=== PATIENT | male | born 1950 ===

== ENCOUNTER 2020-06-30 17:37 | Inpatient (IN) | payer OTHER ==
[~2020-06-30] VITALS: Ht 177.8 cm; Wt 94.8 kg
--- NOTE | 2020-06-30 17:45 | NUR ---
BIB EMS FOR C/O SOB STARTED A FEW DAYS AGO. WENT TO [facility] AND WAS D/C'D. WENT TO DIFFERENT HOSP[facility] YESTERDAY FOR SAME SX WAS D/C'D FROM THERE. PT STATES SOB AFTER SMOKING. WAS GIVEN 1 DUENEB TX AND 1 ALBUTEROL TC W/O RELIEF. PT ALSO DRANK 5 BEERS TODAY. PER PT THAT IS STANDARD DAILY. PT ON 2L NC BASELINE SATIN 979%. PT NOTED TO HAVE PURSE LIPPED BREATHING. PT RESTING ON GURNEY. SITTING UP. MONITORS APPLIED. ERP DR. PIERCE AT BEDSIDE FOR EVAL.
[2020-06-30] MEDS ORDERED: methylPREDNISolone SOD SUCC 125 MG/2 ML ONE (17:57)
[2020-06-30] MEDS ORDERED: MORPHINE SULFATE 4 MG/ML, 1ML ONE (17:57)
[2020-06-30] MEDS ORDERED: ALBUTEROL SULFATE 2.5MG/0.5ML ONE ×2 (17:58→18:00)
[2020-06-30] MEDS ORDERED: MORPHINE SULFATE 4 MG/ML, 1ML IVPush PRN (18:00)
[2020-06-30] MEDS ORDERED: methylPREDNISolone SOD SUCC 125 MG/2 ML IVPush ONE (18:00)
[2020-06-30] MEDS ORDERED: SODIUM CHLORIDE FLUSH 10ML SYR IVF ONE (18:00)
[2020-06-30] MEDS ORDERED: SODIUM CHLORIDE 0.9% 1,000ML IVBOLUS ONE (18:00)
[2020-06-30] MEDS ORDERED: ALBUTEROL 0.5%, 20ML NPPBCONT ONE (18:00)
[2020-06-30 18:16] LABS: MEAN CORPUSCULAR HEMOGLOBIN 33.8 pg (27.5-34.5); MEAN CORPUSCULAR HGB CONC 34.4 g/dL (33.2-36.2); MEAN PLATELET VOLUME 7.2 fL (7.4-10.4); PLATELET COUNT 459 x10^3/uL (130-400); RED BLOOD COUNT 3.74 x10^6/uL (4.38-5.82)
[2020-06-30 18:24] LABS: ALANINE AMINOTRANSFERASE 46 U/L (12-78); ALBUMIN 3.5 g/dL (3.4-5.0); ANION GAP 7 mmol/L (5-15); CALCIUM 8.4 mg/dL (8.5-10.1); CHLORIDE 99 mmol/L (98-107); CREATININE 0.97 mg/dL (0.7-1.3)
--- NOTE | 2020-06-30 18:25 | NUR ---
PT NOTED TO HAVE BREATHING MUCH IMPROVED AFTER INITIATING BIPAP. PT BP NOTED TO BE DECREASED TO 84/50. ERP DR. PIERCE MADE AWARE. NEW ORDERS PLACED.
[2020-06-30 18:26] LABS: ALKALINE PHOSPHATASE 117 U/L (45-117); BILIRUBIN,TOTAL 0.2 mg/dL (0.2-1.0); TOTAL PROTEIN 6.9 g/dL (6.4-8.2)
[2020-06-30] MEDS ORDERED: SODIUM CHLORIDE 0.9%, 500ML IVBOLUS ONE (18:30)
[2020-06-30 18:59] LABS: MD YES
[2020-06-30 19:02] LABS: <PLATELET ESTIMATE> INCREASED; <PLT MORPHOLOGY> NORMAL PLT MORPH; LYMPH#(MANUAL) 1.85 x10^3/uL (1-3.4); LYMPHS% (MANUAL) 13 % (22-44); MONOS#(MANUAL) 0.57 x10^3/uL (0.3-2.7); MONOS% (MANUAL) 4 % (2-9); SEG#(MANUAL) 11.79 x10^3/uL (1.8-6.8); SEGS% (MANUAL) 83 % (42-75)
[2020-06-30 19:04] LABS: <RBC MORPHOLOGY> NORMAL
--- NOTE | 2020-06-30 19:21 | NUR ---
PT CHART REVIEWED AND PLACED FOR RECHECK.
--- NOTE | 2020-06-30 19:28 | NUR ---
ERP DR. PIERCE AT BEDSIDE FOR RE-EVAL. PT TAKEN OFF BIPAP TO ASSESS STATUS.
[2020-06-30] MEDS ORDERED: ALBUTEROL/IPRATROPIUM 2.5MG/0.5MG, 3 ML ONE (19:53)
--- NOTE | 2020-06-30 19:57 | NUR ---
PT has been off bipap for 25 min at this time. MD advised and he ordered a duoneb for pt, prior to re eval for which floor to be admitted too. Pt is lying comfortably, with eyes closed and resting. o2 sats 96% on 2 lpm nc. easy respirations, good aeration and oxygenation. duoneb started and pt holding nebulizer in hand to mouth. tolerating well. RT updated to progress and orders. MD to re eval pt in 20 min.
[2020-06-30] MEDS ORDERED: ALBUTEROL/IPRATROPIUM 2.5MG/0.5MG, 3 ML NEB ONE (20:00)
[2020-06-30] MEDS ORDERED: CEFTRIAXONE PMX 1GM/50ML 50 ML ONE (20:14)
--- NOTE | 2020-06-30 20:26 | NUR ---
PT REMAINS ON 2L NC SATING 99%. PT RR WNL. PT RESTING ON GURNEY. NADN. VSS. STATES HE FEELS MUCH IMPROVED SINCE MEDICATIONS AND BIPAP SESSION.
[2020-06-30] MEDS ORDERED: CEFTRIAXONE PMX 1GM/50ML 50 ML IV ONE (20:30)
[2020-06-30] MEDS ORDERED: AZITHROMYCIN 500 MG in SODIUM CHLORIDE 0.9% 250 ML IV ONE (20:30)
--- NOTE | 2020-06-30 20:54 | NUR ---
REPORT GIVEN TO VAUGHN NARVAEZ RN.
[2020-06-30] MEDS ORDERED: ALBUTEROL SULFATE 2.5MG/0.5ML NPPB ONE (21:00)
--- NOTE | 2020-06-30 21:00 | NUR ---
pt calm and cooperative, resting easy in bed, on o2 nc 2lpm, no distress at this time, post bipap and duo neb, remains on cr monitor, waiting on room upstairs to transfer pt.
--- NOTE | 2020-06-30 22:03 | NUR ---
pt calm and cooperative, resting easy, and good aeration and oxygenation. o2 sat 100% on 2 lpm nc. report being called to floor RN, to transfer pt.
[2020-06-30] MEDS ORDERED: LIDODERM 5% PATCH TD PRN (22:30)
[2020-06-30] MEDS ORDERED: MELATONIN 5 MG TABLET PO PRN (22:30)
[2020-06-30] MEDS ORDERED: DOCUSATE 100 MG CAPSULE PO PRN (22:30)
[2020-06-30] MEDS ORDERED: HEPARIN 5,000 UNITS/ML, 1ML SQ SCH (22:30)
[2020-06-30] MEDS ORDERED: ACETAMINOPHEN 325 MG TABLET PO PRN (22:30)
[2020-06-30] MEDS: ENOXAPARIN 40 MG/0.4 ML SQ SCH (22:30)
--- NOTE | 2020-06-30 22:35 | NUR ---
hospitalist to bedside to interview/eval pt. warm blankets provided to pt and he v/u comfort. waiting for orders and tech to transport pt to floor.
--- NOTE | 2020-06-30 22:52 | NUR ---
pt transported up to floor with RN and Tech. on cr monitor. pt awake and alert, no distress at this time. good aeration and oxygenation. on o2 2 lpm nc.
[2020-06-30 23:07] VITALS: BP 150/69
[2020-06-30] MEDS ORDERED: LORazepam 1MG TABLET PO PRN ×4 (23:30)
[2020-06-30] MEDS ORDERED: HEPARIN/LOVENOX MC SCH (23:30)
[2020-06-30] MEDS ORDERED: FOLIC ACID 1 MG TABLET PO ONE (23:30)
[2020-06-30] MEDS ORDERED: LORazepam 0.5MG TABLET PO PRN (23:30)
[2020-06-30] MEDS ORDERED: THIAMINE 200 MG in DEXTROSE 5% 50 ML IVPB ONE (23:30)
[2020-07-01 01:46] VITALS: BP 158/75
[2020-07-01] MEDS ORDERED: ALBUTEROL-IPRATROPIUM MDI INH INH SCH (03:00)
[2020-07-01] MEDS ORDERED: methylPREDNISolone SOD SUCC 40 MG/ML IVPush SCH (06:00)
[2020-07-01 06:11] LABS: BASOPHILS % (AUTO) 1 % (0-1); EOSINOPHILS % (AUTO) 0 % (1-7); LYMPHOCYTES % (AUTO) 4 % (22-44); MEAN CORPUSCULAR HEMOGLOBIN 34.1 pg (27.5-34.5); MEAN CORPUSCULAR HGB CONC 34.6 g/dL (33.2-36.2); MEAN PLATELET VOLUME 7.3 fL (7.4-10.4); MONOCYTES % (AUTO) 4 % (2-9); NEUTROPHILS % (AUTO) 93 % (42-75); PLATELET COUNT 440 x10^3/uL (130-400); RED BLOOD COUNT 3.49 x10^6/uL (4.38-5.82); RED CELL DISTRIBUTION WIDTH 14.4 % (9.4-14.8)
[2020-07-01 06:16] LABS: ANION GAP 4 mmol/L (5-15); CHLORIDE 101 mmol/L (98-107); CREATININE 0.69 mg/dL (0.7-1.3)
[2020-07-01 07:29] VITALS: BP 156/88
[2020-07-01 08:00] LABS: MD SCAN
[2020-07-01] MEDS ORDERED: ALBUTEROL/IPRATROPIUM 2.5MG/0.5MG, 3 ML ONE ×2 (08:54→09:28)
[2020-07-01] MEDS ORDERED: THIAMINE 100MG TABLET PO SCH (09:00)
[2020-07-01] MEDS ORDERED: FOLIC ACID 1 MG TABLET PO SCH (09:00)
[2020-07-01] MEDS: TIOTROPIUM BROMIDE 18 MCG/INH INH SCH (09:00)
[2020-07-01 09:02] VITALS: BP 110/66
[2020-07-01] MEDS ORDERED: SODIUM CHLORIDE 0.9% 1,000 ML IV SCH (09:30)
[2020-07-01] MEDS ORDERED: LORazepam 2 MG/ML, 1ML IVPush PRN (09:30)
[2020-07-01] MEDS: CHLORDIAZEPOXIDE 25 MG CAPSULE PO SCH ×3 (09:30→22:09)
[2020-07-01] MEDS ORDERED: FUROSEMIDE 40 MG/4 ML IV ONE (09:30)
[2020-07-01] MEDS ORDERED: LORazepam 2 MG/ML, 1ML IVPush ONE (09:30)
[2020-07-01 09:34] LABS: O2 FLOW 15 L/min
[2020-07-01] MEDS: MAGNESIUM SULFATE 1 GM, THIAMINE 200 MG, FOLIC ACID 1 MG, MVI ADULT 10 ML in SODIUM CHL... IV SCH (09:44)
[2020-07-01] MEDS: methylPREDNISolone SOD SUCC 40 MG/ML IVPush SCH ×3 (09:44→22:09)
[2020-07-01] MEDS: FLUTICASONE/VILANTEROL 200-25MCG/INH INH SCH (09:44)
[2020-07-01 10:33] LABS: FIO2 80 %
[2020-07-01] MEDS: ALBUTEROL/IPRATROPIUM 2.5MG/0.5MG, 3 ML NPPB SCH ×4 (14:00→23:00)
[2020-07-01] MEDS: ENOXAPARIN 40 MG/0.4 ML SQ SCH (22:10)
[2020-07-01] MEDS: CEFTRIAXONE PMX 1GM/50ML 50 ML IV SCH (22:34)
[2020-07-01] MEDS: AZITHROMYCIN 500 MG in SODIUM CHLORIDE 0.9% 250 ML IV SCH (23:17)
[2020-07-02] MEDS: ALBUTEROL/IPRATROPIUM 2.5MG/0.5MG, 3 ML NPPB SCH (03:00)
[2020-07-02 03:04] LABS: BASOPHILS % (AUTO) 1 % (0-1); EOSINOPHILS % (AUTO) 0 % (1-7); LYMPHOCYTES % (AUTO) 2 % (22-44); MEAN CORPUSCULAR HEMOGLOBIN 34.2 pg (27.5-34.5); MEAN CORPUSCULAR HGB CONC 34.6 g/dL (33.2-36.2); MEAN PLATELET VOLUME 7.4 fL (7.4-10.4); MONOCYTES % (AUTO) 5 % (2-9); NEUTROPHILS % (AUTO) 93 % (42-75); PLATELET COUNT 402 x10^3/uL (130-400); RED BLOOD COUNT 3.27 x10^6/uL (4.38-5.82); RED CELL DISTRIBUTION WIDTH 14.3 % (9.4-14.8)
[2020-07-02 03:13] LABS: ALANINE AMINOTRANSFERASE 30 U/L (12-78); ANION GAP 3 mmol/L (5-15); CALCIUM 8.6 mg/dL (8.5-10.1); CHLORIDE 100 mmol/L (98-107); CREATININE 0.89 mg/dL (0.7-1.3)
[2020-07-02 03:16] LABS: ALKALINE PHOSPHATASE 97 U/L (45-117); BILIRUBIN,TOTAL 0.2 mg/dL (0.2-1.0); TOTAL PROTEIN 5.9 g/dL (6.4-8.2)
[2020-07-02 03:22] LABS: MD SCAN
[2020-07-02] MEDS: methylPREDNISolone SOD SUCC 40 MG/ML IVPush SCH ×4 (03:57→21:51)
[2020-07-02] MEDS: MAGNESIUM SULFATE 1 GM, THIAMINE 200 MG, FOLIC ACID 1 MG, MVI ADULT 10 ML in SODIUM CHL... IV SCH (09:12)
[2020-07-02] MEDS: CHLORDIAZEPOXIDE 25 MG CAPSULE PO SCH ×3 (09:12→21:51)
[2020-07-02] MEDS: ALBUTEROL HFA 90 MCG/SPRAY INH SCH ×3 (10:25→21:51)
[2020-07-02] MEDS: TIOTROPIUM BROMIDE 18 MCG/INH INH SCH (10:25)
[2020-07-02] MEDS: FLUTICASONE/VILANTEROL 200-25MCG/INH INH SCH (10:25)
[2020-07-02] MEDS: NICOTINE 21 MG/24 HR PATCH.TD24 TD SCH (12:05)
[2020-07-02] MEDS ORDERED: ALBUTEROL SULFATE 2.5 MG/3 ML ONE (13:41)
[2020-07-02] MEDS: ALBUTEROL SULFATE 2.5 MG/3 ML NPPB PRN ×2 (13:50→20:39)
[2020-07-02] MEDS: CEFTRIAXONE PMX 1GM/50ML 50 ML IV SCH (21:51)
[2020-07-02] MEDS: ENOXAPARIN 40 MG/0.4 ML SQ SCH (22:00)
[2020-07-02] MEDS: AZITHROMYCIN 500 MG in SODIUM CHLORIDE 0.9% 250 ML IV SCH (22:36)
[2020-07-03] MEDS: ALBUTEROL HFA 90 MCG/SPRAY INH SCH ×2 (04:02→08:45)
[2020-07-03] MEDS: methylPREDNISolone SOD SUCC 40 MG/ML IVPush SCH ×4 (04:02→21:55)
[2020-07-03 04:31] LABS: BASOPHILS % (AUTO) 0 % (0-1); EOSINOPHILS % (AUTO) 0 % (1-7); LYMPHOCYTES % (AUTO) 2 % (22-44); MEAN CORPUSCULAR HEMOGLOBIN 33.7 pg (27.5-34.5); MEAN CORPUSCULAR HGB CONC 33.9 g/dL (33.2-36.2); MEAN PLATELET VOLUME 7.3 fL (7.4-10.4); MONOCYTES % (AUTO) 6 % (2-9); NEUTROPHILS % (AUTO) 92 % (42-75); PLATELET COUNT 448 x10^3/uL (130-400); RED BLOOD COUNT 3.49 x10^6/uL (4.38-5.82); RED CELL DISTRIBUTION WIDTH 14.2 % (9.4-14.8)
[2020-07-03 04:34] LABS: MD SCAN
[2020-07-03 04:36] LABS: ANION GAP 6 mmol/L (5-15); CALCIUM 8.7 mg/dL (8.5-10.1); CHLORIDE 102 mmol/L (98-107); CREATININE 1.05 mg/dL (0.7-1.3)
[2020-07-03] MEDS: CHLORDIAZEPOXIDE 25 MG CAPSULE PO SCH ×3 (08:28→21:07)
[2020-07-03] MEDS: NICOTINE 21 MG/24 HR PATCH.TD24 TD SCH (08:28)
[2020-07-03] MEDS: TIOTROPIUM BROMIDE 18 MCG/INH INH SCH (08:28)
[2020-07-03] MEDS: FLUTICASONE/VILANTEROL 200-25MCG/INH INH SCH (08:29)
[2020-07-03] MEDS: THIAMINE 200 MG in SODIUM CHLORIDE 0.9% 50 ML IV SCH (08:45)
[2020-07-03] MEDS ORDERED: ALBUTEROL/IPRATROPIUM 2.5MG/0.5MG, 3 ML NPPB SCH (19:00)
[2020-07-03 20:57] VITALS: BP 176/94
[2020-07-03] MEDS: LABETALOL 5MG/ML, 20ML IVPush PRN (21:07)
[2020-07-03] MEDS: CEFTRIAXONE PMX 1GM/50ML 50 ML IV SCH (21:07)
[2020-07-03] MEDS: AZITHROMYCIN 500 MG in SODIUM CHLORIDE 0.9% 250 ML IV SCH (21:54)
[2020-07-03] MEDS: ENOXAPARIN 40 MG/0.4 ML SQ SCH (21:55)
[2020-07-03 21:59] VITALS: BP 169/65
[2020-07-04] VITALS (8 sets, daily range): BP systolic 158–188; BP diastolic 62–109
[2020-07-04] MEDS: LABETALOL 5MG/ML, 20ML IVPush PRN (00:11)
[2020-07-04] MEDS: methylPREDNISolone SOD SUCC 40 MG/ML IVPush SCH ×3 (03:10→16:12)
[2020-07-04] MEDS ORDERED: MELATONIN 5 MG TABLET PO PRN (08:30)
[2020-07-04] MEDS ORDERED: LORazepam 2 MG/ML, 1ML IVPush ONE (08:30)
[2020-07-04] MEDS: FLUTICASONE/VILANTEROL 200-25MCG/INH INH SCH (08:52)
[2020-07-04] MEDS: TIOTROPIUM BROMIDE 18 MCG/INH INH SCH (08:52)
[2020-07-04] MEDS: CHLORDIAZEPOXIDE 25 MG CAPSULE PO SCH ×3 (08:54→19:55)
[2020-07-04] MEDS: NICOTINE 21 MG/24 HR PATCH.TD24 TD SCH (08:56)
[2020-07-04] MEDS: THIAMINE 200 MG in SODIUM CHLORIDE 0.9% 50 ML IV SCH (09:38)
[2020-07-04] MEDS ORDERED: methylPREDNISolone SOD SUCC 125 MG/2 ML ONE (15:54)
[2020-07-04] MEDS ORDERED: methylPREDNISolone SOD SUCC 125 MG/2 ML IVPush SCH (17:00)
[2020-07-04] MEDS: CEFTRIAXONE PMX 1GM/50ML 50 ML IV SCH (19:59)
[2020-07-04] MEDS: AZITHROMYCIN 500 MG in SODIUM CHLORIDE 0.9% 250 ML IV SCH (21:41)
[2020-07-04] MEDS: ENOXAPARIN 40 MG/0.4 ML SQ SCH (21:41)
[2020-07-05 01:20] VITALS: BP 147/88
[2020-07-05 07:38] VITALS: BP 171/102
[2020-07-05 07:40] LABS: BASOPHILS % (AUTO) 0 % (0-1); EOSINOPHILS % (AUTO) 0 % (1-7); LYMPHOCYTES % (AUTO) 4 % (22-44); MEAN CORPUSCULAR HEMOGLOBIN 33.7 pg (27.5-34.5); MEAN CORPUSCULAR HGB CONC 33.7 g/dL (33.2-36.2); MEAN PLATELET VOLUME 7.5 fL (7.4-10.4); MONOCYTES % (AUTO) 4 % (2-9); NEUTROPHILS % (AUTO) 92 % (42-75); PLATELET COUNT 400 x10^3/uL (130-400); RED BLOOD COUNT 3.66 x10^6/uL (4.38-5.82); RED CELL DISTRIBUTION WIDTH 14.2 % (9.4-14.8)
[2020-07-05 07:46] LABS: ANION GAP 5 mmol/L (5-15); CALCIUM 8.4 mg/dL (8.5-10.1); CHLORIDE 104 mmol/L (98-107)
[2020-07-05 07:47] LABS: CREATININE 0.98 mg/dL (0.7-1.3)
[2020-07-05] MEDS: AMLODIPINE 5 MG TABLET PO SCH (07:48)
[2020-07-05] MEDS: CHLORDIAZEPOXIDE 25 MG CAPSULE PO SCH ×3 (07:48→20:24)
[2020-07-05] MEDS: NICOTINE 21 MG/24 HR PATCH.TD24 TD SCH (07:49)
[2020-07-05] MEDS: LABETALOL 5MG/ML, 20ML IVPush PRN (07:50)
[2020-07-05] MEDS: TIOTROPIUM BROMIDE 18 MCG/INH INH SCH (07:52)
[2020-07-05] MEDS: FLUTICASONE/VILANTEROL 200-25MCG/INH INH SCH (07:52)
[2020-07-05 08:03] LABS: MD SCAN
[2020-07-05] MEDS: THIAMINE 200 MG in SODIUM CHLORIDE 0.9% 50 ML IV SCH (08:43)
[2020-07-05 12:17] VITALS: BP 151/89
[2020-07-05] MEDS ORDERED: methylPREDNISolone SOD SUCC 125 MG/2 ML IVPush ONE (18:30)
[2020-07-05 20:00] VITALS: BP 152/81
[2020-07-05] MEDS: CEFTRIAXONE PMX 1GM/50ML 50 ML IV SCH (20:24)
[2020-07-05] MEDS: AZITHROMYCIN 500 MG in SODIUM CHLORIDE 0.9% 250 ML IV SCH (21:50)
[2020-07-05] MEDS: ENOXAPARIN 40 MG/0.4 ML SQ SCH (21:50)
[2020-07-06 02:00] VITALS: BP 136/90
[2020-07-06] MEDS ORDERED: methylPREDNISolone SOD SUCC 125 MG/2 ML IVPush SCH (07:30)
[2020-07-06] MEDS: FLUTICASONE/VILANTEROL 200-25MCG/INH INH SCH (08:31)
[2020-07-06] MEDS: THIAMINE 200 MG in SODIUM CHLORIDE 0.9% 50 ML IV SCH (08:31)
[2020-07-06] MEDS: TIOTROPIUM BROMIDE 18 MCG/INH INH SCH (08:31)
[2020-07-06] MEDS: NICOTINE 21 MG/24 HR PATCH.TD24 TD SCH ×2 (08:32→09:00)
[2020-07-06] MEDS: AMLODIPINE 5 MG TABLET PO SCH (08:32)
[2020-07-06] MEDS: CHLORDIAZEPOXIDE 25 MG CAPSULE PO SCH ×3 (08:32→20:29)
[2020-07-06 08:34] VITALS: BP 130/62
[2020-07-06 09:38] LABS: BASOPHILS % (AUTO) 0 % (0-1); EOSINOPHILS % (AUTO) 0 % (1-7); LYMPHOCYTES % (AUTO) 4 % (22-44); MEAN CORPUSCULAR HEMOGLOBIN 33.6 pg (27.5-34.5); MEAN CORPUSCULAR HGB CONC 33.6 g/dL (33.2-36.2); MEAN PLATELET VOLUME 7.4 fL (7.4-10.4); MONOCYTES % (AUTO) 7 % (2-9); NEUTROPHILS % (AUTO) 89 % (42-75); PLATELET COUNT 395 x10^3/uL (130-400); RED BLOOD COUNT 3.68 x10^6/uL (4.38-5.82); RED CELL DISTRIBUTION WIDTH 14.3 % (9.4-14.8)
[2020-07-06 09:47] LABS: CALCIUM 8.2 mg/dL (8.5-10.1); CREATININE 0.74 mg/dL (0.7-1.3)
[2020-07-06 09:57] LABS: ANION GAP 6 mmol/L (5-15); CHLORIDE 100 mmol/L (98-107)
[2020-07-06 10:00] LABS: MD SCAN
[2020-07-06 13:15] VITALS: BP 164/90
[2020-07-06 20:00] VITALS: BP 156/87
[2020-07-06] MEDS: CEFTRIAXONE PMX 1GM/50ML 50 ML IV SCH (20:29)
[2020-07-06] MEDS: ALBUTEROL HFA 90 MCG/SPRAY INH PRN (20:34)
[2020-07-06] MEDS: ENOXAPARIN 40 MG/0.4 ML SQ SCH (21:34)
[2020-07-06] MEDS: AZITHROMYCIN 500 MG in SODIUM CHLORIDE 0.9% 250 ML IV SCH (21:34)
[2020-07-07 01:49] VITALS: BP 131/77
[2020-07-07 04:55] LABS: BASOPHILS % (AUTO) 0 % (0-1); EOSINOPHILS % (AUTO) 1 % (1-7); LYMPHOCYTES % (AUTO) 5 % (22-44); MEAN CORPUSCULAR HEMOGLOBIN 34.5 pg (27.5-34.5); MEAN CORPUSCULAR HGB CONC 34.3 g/dL (33.2-36.2); MEAN PLATELET VOLUME 7.5 fL (7.4-10.4); MONOCYTES % (AUTO) 11 % (2-9); NEUTROPHILS % (AUTO) 83 % (42-75); PLATELET COUNT 372 x10^3/uL (130-400); RED BLOOD COUNT 3.36 x10^6/uL (4.38-5.82); RED CELL DISTRIBUTION WIDTH 14.4 % (9.4-14.8)
[2020-07-07 05:04] LABS: ANION GAP 3 mmol/L (5-15); CALCIUM 8.3 mg/dL (8.5-10.1); CHLORIDE 101 mmol/L (98-107); CREATININE 0.99 mg/dL (0.7-1.3)
[2020-07-07 05:43] LABS: MD SCAN
[2020-07-07 08:43] VITALS: BP 166/92
[2020-07-07] MEDS: THIAMINE 200 MG in SODIUM CHLORIDE 0.9% 50 ML IV SCH (10:15)
[2020-07-07] MEDS: CHLORDIAZEPOXIDE 25 MG CAPSULE PO SCH ×3 (10:15→20:47)
[2020-07-07] MEDS: AMLODIPINE 5 MG TABLET PO SCH (10:15)
[2020-07-07] MEDS: FUROSEMIDE 40 MG/4 ML IV SCH (10:15)
[2020-07-07] MEDS: NICOTINE 21 MG/24 HR PATCH.TD24 TD SCH (10:16)
[2020-07-07] MEDS: TIOTROPIUM BROMIDE 18 MCG/INH INH SCH (10:16)
[2020-07-07] MEDS: FLUTICASONE/VILANTEROL 200-25MCG/INH INH SCH (10:16)
[2020-07-07 12:02] VITALS: BP 147/81
[2020-07-07 13:40] LABS: MICROSCOPIC NOT IND
[2020-07-07] MEDS ORDERED: THEOPHYLLINE 100 MG CAP.ER.24H PO SCH (14:30)
[2020-07-07] MEDS: THEOPHYLLINE 80 MG/15 ML PO SCH (17:49)
[2020-07-07 18:43] VITALS: BP 142/67
[2020-07-07] MEDS: ALBUTEROL HFA 90 MCG/SPRAY INH PRN (20:45)
[2020-07-07] MEDS: CEFTRIAXONE PMX 2GM/50ML 50 ML IVPB SCH (20:50)
[2020-07-08] MEDS: ENOXAPARIN 40 MG/0.4 ML SQ SCH ×2 (00:19→21:37)
[2020-07-08] MEDS: THEOPHYLLINE 80 MG/15 ML PO SCH (01:45)
[2020-07-08 02:11] VITALS: BP 143/68
[2020-07-08] MEDS: ALBUTEROL HFA 90 MCG/SPRAY INH PRN (05:47)
[2020-07-08 08:40] VITALS: BP 161/95
[2020-07-08 08:40] LABS: BASOPHILS % (AUTO) 0 % (0-1); EOSINOPHILS % (AUTO) 1 % (1-7); LYMPHOCYTES % (AUTO) 8 % (22-44); MEAN CORPUSCULAR HEMOGLOBIN 34.2 pg (27.5-34.5); MEAN CORPUSCULAR HGB CONC 34.3 g/dL (33.2-36.2); MEAN PLATELET VOLUME 7.4 fL (7.4-10.4); MONOCYTES % (AUTO) 14 % (2-9); NEUTROPHILS % (AUTO) 78 % (42-75); PLATELET COUNT 361 x10^3/uL (130-400); RED BLOOD COUNT 3.82 x10^6/uL (4.38-5.82); RED CELL DISTRIBUTION WIDTH 14.6 % (9.4-14.8)
[2020-07-08 08:55] LABS: ALANINE AMINOTRANSFERASE 99 U/L (12-78); ALBUMIN 2.9 g/dL (3.4-5.0); ANION GAP 6 mmol/L (5-15); CALCIUM 8.7 mg/dL (8.5-10.1); CHLORIDE 99 mmol/L (98-107); CREATININE 0.88 mg/dL (0.7-1.3)
[2020-07-08] MEDS: CHLORDIAZEPOXIDE 25 MG CAPSULE PO SCH (08:55)
[2020-07-08] MEDS: NICOTINE 21 MG/24 HR PATCH.TD24 TD SCH (08:55)
[2020-07-08] MEDS: FUROSEMIDE 40 MG/4 ML IV SCH (08:56)
[2020-07-08] MEDS: TIOTROPIUM BROMIDE 18 MCG/INH INH SCH (08:56)
[2020-07-08] MEDS: AMLODIPINE 5 MG TABLET PO SCH (08:56)
[2020-07-08] MEDS: FLUTICASONE/VILANTEROL 200-25MCG/INH INH SCH (08:56)
[2020-07-08 08:58] LABS: ALKALINE PHOSPHATASE 70 U/L (45-117); BILIRUBIN,TOTAL 0.2 mg/dL (0.2-1.0); TOTAL PROTEIN 5.7 g/dL (6.4-8.2)
[2020-07-08 09:04] LABS: MD SCAN
[2020-07-08] MEDS ORDERED: FUROSEMIDE 40 MG/4 ML IV ONE (09:30)
[2020-07-08] MEDS: THIAMINE 200 MG in SODIUM CHLORIDE 0.9% 50 ML IV SCH (10:28)
[2020-07-08] MEDS: CARVEDILOL 3.125 MG TABLET PO SCH ×2 (12:57→21:37)
[2020-07-08] MEDS: ALBUTEROL HFA 90 MCG/SPRAY INH SCH ×4 (12:57→20:01)
[2020-07-08 13:32] VITALS: BP 148/81
[2020-07-08 13:51] LABS: ALANINE AMINOTRANSFERASE 99 U/L (12-78); ANION GAP 6 mmol/L (5-15); CALCIUM 8.9 mg/dL (8.5-10.1); CHLORIDE 98 mmol/L (98-107); CREATININE 1.13 mg/dL (0.7-1.3)
[2020-07-08 13:53] LABS: ALKALINE PHOSPHATASE 71 U/L (45-117); BILIRUBIN,TOTAL 0.2 mg/dL (0.2-1.0); TOTAL PROTEIN 6.1 g/dL (6.4-8.2)
[2020-07-08 13:55] LABS: BASOPHILS % (AUTO) 0 % (0-1); EOSINOPHILS % (AUTO) 1 % (1-7); LYMPHOCYTES % (AUTO) 3 % (22-44); MEAN CORPUSCULAR HEMOGLOBIN 33.5 pg (27.5-34.5); MEAN CORPUSCULAR HGB CONC 33.5 g/dL (33.2-36.2); MEAN PLATELET VOLUME 7.7 fL (7.4-10.4); MONOCYTES % (AUTO) 9 % (2-9); NEUTROPHILS % (AUTO) 87 % (42-75); PLATELET COUNT 379 x10^3/uL (130-400); RED BLOOD COUNT 3.95 x10^6/uL (4.38-5.82); RED CELL DISTRIBUTION WIDTH 14.5 % (9.4-14.8)
[2020-07-08 14:19] LABS: MD SCAN
[2020-07-08] MEDS: BUSPIRONE 10 MG TABLET PO SCH ×2 (17:01→21:36)
[2020-07-08] MEDS: CEFTRIAXONE PMX 2GM/50ML 50 ML IVPB SCH (20:01)
[2020-07-09] MEDS: ALBUTEROL HFA 90 MCG/SPRAY INH SCH ×6 (00:43→19:33)
[2020-07-09] MEDS: CARVEDILOL 3.125 MG TABLET PO SCH ×2 (05:29→17:31)
[2020-07-09] MEDS: FLUTICASONE/VILANTEROL 200-25MCG/INH INH SCH (08:39)
[2020-07-09] MEDS: TIOTROPIUM BROMIDE 18 MCG/INH INH SCH (08:39)
[2020-07-09] MEDS: BUSPIRONE 10 MG TABLET PO SCH ×3 (08:47→22:19)
[2020-07-09] MEDS: AMLODIPINE 5 MG TABLET PO SCH (08:47)
[2020-07-09] MEDS: NICOTINE 21 MG/24 HR PATCH.TD24 TD SCH (08:48)
[2020-07-09 09:00] LABS: ALANINE AMINOTRANSFERASE 75 U/L (12-78); ALBUMIN 2.7 g/dL (3.4-5.0); CALCIUM 8.5 mg/dL (8.5-10.1); CHLORIDE 101 mmol/L (98-107); CREATININE 0.82 mg/dL (0.7-1.3)
[2020-07-09] MEDS ORDERED: CHLORDIAZEPOXIDE 25 MG CAPSULE PO SCH (09:00)
[2020-07-09 09:01] LABS: MEAN CORPUSCULAR HEMOGLOBIN 33.7 pg (27.5-34.5); MEAN CORPUSCULAR HGB CONC 33.7 g/dL (33.2-36.2); MEAN PLATELET VOLUME 7.9 fL (7.4-10.4); PLATELET COUNT 308 x10^3/uL (130-400); RED BLOOD COUNT 3.44 x10^6/uL (4.38-5.82)
[2020-07-09 09:02] LABS: ALKALINE PHOSPHATASE 59 U/L (45-117); BILIRUBIN,TOTAL 0.1 mg/dL (0.2-1.0); TOTAL PROTEIN 5.1 g/dL (6.4-8.2)
[2020-07-09 09:08] LABS: ANION GAP 5 mmol/L (5-15)
[2020-07-09 09:20] LABS: MD YES
[2020-07-09 09:21] LABS: BAND#(MANUAL) 0.17 x10^3/uL; BANDS%(MANUAL) 1 % (0-7); METAMYELOCYTES# (MANUAL) 0.33 x10^3/uL (0-0); METAMYELOCYTES% (MANUAL) 2 % (0-1); MYELOCYTES# (MANUAL) 0.17 x10^3/uL (0-0); MYELOCYTES% (MANUAL) 1 % (0-0)
[2020-07-09 09:22] LABS: LYMPH#(MANUAL) 1.66 x10^3/uL (1-3.4); LYMPHS% (MANUAL) 10 % (22-44); MONOS#(MANUAL) 1.49 x10^3/uL (0.3-2.7); MONOS% (MANUAL) 9 % (2-9); SEG#(MANUAL) 12.78 x10^3/uL (1.8-6.8); SEGS% (MANUAL) 77 % (42-75)
[2020-07-09 09:23] LABS: <PLATELET ESTIMATE> ADEQUATE; <PLT MORPHOLOGY> NORMAL PLT MORPH; ANISOCYTOSIS 1+
[2020-07-09 21:08] VITALS: BP 143/84
[2020-07-09] MEDS: ENOXAPARIN 40 MG/0.4 ML SQ SCH (22:20)
[2020-07-09] MEDS: CEFTRIAXONE PMX 2GM/50ML 50 ML IVPB SCH (22:22)
[2020-07-09] MEDS ORDERED: ALBUTEROL SULFATE 2.5 MG/3 ML ONE (23:27)
[2020-07-10 00:08] VITALS: BP 134/66
[2020-07-10] MEDS: ALBUTEROL HFA 90 MCG/SPRAY INH SCH ×6 (00:30→20:43)
[2020-07-10 05:31] VITALS: BP 144/80
[2020-07-10] MEDS: CARVEDILOL 3.125 MG TABLET PO SCH ×2 (05:32→17:12)
[2020-07-10 08:24] VITALS: BP 137/80
[2020-07-10] MEDS: TIOTROPIUM BROMIDE 18 MCG/INH INH SCH (09:11)
[2020-07-10] MEDS: FLUTICASONE/VILANTEROL 200-25MCG/INH INH SCH (09:13)
[2020-07-10] MEDS: BUSPIRONE 10 MG TABLET PO SCH ×3 (09:14→20:43)
[2020-07-10] MEDS: AMLODIPINE 5 MG TABLET PO SCH (09:14)
[2020-07-10] MEDS: NICOTINE 21 MG/24 HR PATCH.TD24 TD SCH (09:16)
[2020-07-10] MEDS ORDERED: methylPREDNISolone SOD SUCC 125 MG/2 ML IV ONE (11:30)
[2020-07-10 12:47] VITALS: BP 132/80
[2020-07-10 18:48] VITALS: BP 154/83
[2020-07-10] MEDS: ENOXAPARIN 40 MG/0.4 ML SQ SCH (22:58)
[2020-07-11 00:17] VITALS: BP 127/79
[2020-07-11] MEDS: ALBUTEROL HFA 90 MCG/SPRAY INH SCH ×3 (00:30→08:34)
[2020-07-11] MEDS: CARVEDILOL 3.125 MG TABLET PO SCH (06:12)
[2020-07-11 06:13] VITALS: BP 138/88
[2020-07-11] MEDS: NICOTINE 21 MG/24 HR PATCH.TD24 TD SCH (08:32)
[2020-07-11] MEDS: BUSPIRONE 10 MG TABLET PO SCH (08:32)
[2020-07-11] MEDS: AMLODIPINE 5 MG TABLET PO SCH (08:32)
[2020-07-11] MEDS: FLUTICASONE/VILANTEROL 200-25MCG/INH INH SCH (08:34)
[2020-07-11] MEDS: TIOTROPIUM BROMIDE 18 MCG/INH INH SCH (08:36)
== END 2020-07-11 10:28 | disposition hospice, home (50) | DRG 189 ==
LOC: ED 21:17 → EDIP 21:20 → 4EST 23:04 → ICU 07-01 09:15 → CCU 07-02 15:27 → 5SO 07-03 19:33 → CCU 07-08 15:44 → 3N 07-09 12:57 → DCLOUNGE 07-11 08:01 → 3N 07-11 08:21
PROVIDERS: ADMIT Family Medicine; ATTEND Hospitalist
PROC: 5A09357 Assistance with Respiratory Ventilation, Less than 24 Consecutive Hours, Continuous Positive Airway Pressure (ICD-10-PCS; principal; 2020-06-30)
PROC: 5A09357 Assistance with Respiratory Ventilation, Less than 24 Consecutive Hours, Continuous Positive Airway Pressure (ICD-10-PCS; 2020-07-01)
PROC: 5A09357 Assistance with Respiratory Ventilation, Less than 24 Consecutive Hours, Continuous Positive Airway Pressure (ICD-10-PCS; 2020-07-02)
PROC: 5A09357 Assistance with Respiratory Ventilation, Less than 24 Consecutive Hours, Continuous Positive Airway Pressure (ICD-10-PCS; 2020-07-03)
PROC: 5A09357 Assistance with Respiratory Ventilation, Less than 24 Consecutive Hours, Continuous Positive Airway Pressure (ICD-10-PCS; 2020-07-04)
PROC: 5A09357 Assistance with Respiratory Ventilation, Less than 24 Consecutive Hours, Continuous Positive Airway Pressure (ICD-10-PCS; 2020-07-05)
PROC: 5A09357 Assistance with Respiratory Ventilation, Less than 24 Consecutive Hours, Continuous Positive Airway Pressure (ICD-10-PCS; 2020-07-06)
PROC: 5A09357 Assistance with Respiratory Ventilation, Less than 24 Consecutive Hours, Continuous Positive Airway Pressure (ICD-10-PCS; 2020-07-07)
PROC: 5A09357 Assistance with Respiratory Ventilation, Less than 24 Consecutive Hours, Continuous Positive Airway Pressure (ICD-10-PCS; 2020-07-08)
PROC: 5A09357 Assistance with Respiratory Ventilation, Less than 24 Consecutive Hours, Continuous Positive Airway Pressure (ICD-10-PCS; 2020-07-09)
DX: J96.21 Acute and chronic respiratory failure with hypoxia (principal); J44.1 Chronic obstructive pulmonary disease with (acute) exacerbation; E87.1 Hypo-osmolality and hyponatremia; I50.32 Chronic diastolic (congestive) heart failure; R65.10 Systemic inflammatory response syndrome (SIRS) of non-infectious origin without acute organ dysfunction; J44.0 Chronic obstructive pulmonary disease with (acute) lower respiratory infection; J96.22 Acute and chronic respiratory failure with hypercapnia; I27.20 Pulmonary hypertension, unspecified; F10.229 Alcohol dependence with intoxication, unspecified; J20.9 Acute bronchitis, unspecified; Z20.822 Contact with and (suspected) exposure to COVID-19; Z51.5 Encounter for palliative care; Z66 Do not resuscitate; I11.0 Hypertensive heart disease with heart failure; F41.9 Anxiety disorder, unspecified; D53.9 Nutritional anemia, unspecified; D50.9 Iron deficiency anemia, unspecified; Z79.899 Other long term (current) drug therapy; Z99.81 Dependence on supplemental oxygen; Z88.0 Allergy status to penicillin
CPT/HCPCS: 36415; 36600; 84145; 96365; 96375; 99291; J7613; 71045; 71275; 80048; 80053; 80320; 81003; 82607; 82803; 83605; 83735; 84100; 84443; 85025; 85379; 87040; 87081; 87205; 93005; 93306; 94640; 94660; G0378; J0456; J0696; J1650; J1940; J3411; J3475; G0480; J2060; J2270; J2920; J2930; J7030; J7040; J7050; J7512; U0003

== ENCOUNTER 2020-07-11 14:27 | Inpatient (IN) | payer OTHER ==
[2020-07-11] MEDS ORDERED: LORazepam 2 MG/ML, 1ML ONE (14:53)
[2020-07-11] MEDS ORDERED: morphine SULFATE 10 MG/ML, 1ML ONE (14:53)
[2020-07-11] MEDS ORDERED: MORPHINE SULFATE 4 MG/ML, 1ML IVPush ONE (15:00)
[2020-07-11] MEDS ORDERED: LORazepam 2 MG/ML, 1ML IVPush PRN (15:30)
[2020-07-11] MEDS ORDERED: ONDANSETRON 2MG/ML, 2ML IVPush PRN (15:30)
[2020-07-11] MEDS ORDERED: SODIUM CHLORIDE 0.9% 1,000 ML IV SCH (15:30)
[2020-07-11] MEDS ORDERED: ATROPINE OPHTH SOLN 1%, 5ML BC PRN (15:30)
[2020-07-11] MEDS ORDERED: MORPHINE SULFATE 4 MG/ML, 1ML IVPush PRN ×3 (15:30)
[2020-07-11] MEDS ORDERED: LORazepam 2 MG/ML, 1ML IVPush ONE (15:30)
[2020-07-11] MEDS ORDERED: SCOPOLAMINE PATCH, 1.5MG PATCH.TD72 TD SCH (16:00)
[2020-07-11] MEDS: LORazepam 2 MG/ML, 1ML IVPush SCH ×2 (16:23→21:30)
[2020-07-12] MEDS: LORazepam 2 MG/ML, 1ML IVPush SCH (03:24)
== END 2020-07-12 09:50 | disposition expired | DRG 190 ==
LOC: 4NE 14:58 → 4NW 20:41
PROVIDERS: ADMIT Internal Medicine; ATTEND Internal Medicine
DX: J44.1 Chronic obstructive pulmonary disease with (acute) exacerbation (principal); J96.20 Acute and chronic respiratory failure, unspecified whether with hypoxia or hypercapnia; I50.32 Chronic diastolic (congestive) heart failure; R65.10 Systemic inflammatory response syndrome (SIRS) of non-infectious origin without acute organ dysfunction; I38 Endocarditis, valve unspecified; J44.0 Chronic obstructive pulmonary disease with (acute) lower respiratory infection; J20.9 Acute bronchitis, unspecified; F41.9 Anxiety disorder, unspecified; Z66 Do not resuscitate; Z51.5 Encounter for palliative care; I27.20 Pulmonary hypertension, unspecified; J98.4 Other disorders of lung; D50.9 Iron deficiency anemia, unspecified; D72.829 Elevated white blood cell count, unspecified; F10.129 Alcohol abuse with intoxication, unspecified; D47.3 Essential (hemorrhagic) thrombocythemia; F17.200 Nicotine dependence, unspecified, uncomplicated; Z79.899 Other long term (current) drug therapy
CPT/HCPCS: 99285; G0378; J2270; J2060